=== PATIENT | female | born 1985 | race Two or more races ===

== ENCOUNTER 2018-10-15 16:28 | Emergency (ER) | payer OTHER ==
[~2018-10-15] VITALS: Ht 160 cm; Wt 73.0 kg
[~2018-10-15 16:28] MED LIST: INSU100C5 SQ-INSULIN; INSU100V13 SQ
--- NOTE | 2018-10-15 17:03 | NUR ---
PT IN [place]
[2018-10-15 17:33] LABS: BASOPHILS # (AUTO) 0.04 x10^3/uL (0-0.1); BASOPHILS % (AUTO) 0 % (0-1); EOSINOPHILS # (AUTO) 0.07 x10^3/uL (0-0.4); EOSINOPHILS % (AUTO) 1 % (1-7); LYMPHOCYTES # (AUTO) 2.58 x10^3/uL (1-3.4); LYMPHOCYTES % (AUTO) 21 % (22-44); MD NO; MEAN CORPUSCULAR HGB CONC 33.8 g/dL (32.4-35.8); MEAN CORPUSCULAR VOLUME 88.8 fL (80-100); MEAN PLATELET VOLUME 7.9 fL (7.4-10.4); MONOCYTES # (AUTO) 0.47 x10^3/uL (0.2-0.8); MONOCYTES % (AUTO) 4 % (2-9); NEUTROPHILS # (AUTO) 9.38 x10^3/uL (1.8-6.8); NEUTROPHILS % (AUTO) 75 % (42-75); PLATELET COUNT 381 x10^3/uL (130-400); RED BLOOD COUNT 4.33 x10^6/uL (3.82-5.3); RED CELL DISTRIBUTION WIDTH 13.2 % (9.6-15.2)
[2018-10-15 17:46] LABS: ALBUMIN 3.6 g/dL (3.4-5.0); ANION GAP 8 mmol/L (5-15); CALCIUM 9.4 mg/dL (8.5-10.1); CHLORIDE 106 mmol/L (98-107)
[2018-10-15 17:50] VITALS: BP 136/58
[2018-10-15 18:05] LABS: CREATININE 0.58 mg/dL (0.55-1.02)
--- NOTE | 2018-10-15 18:24 | NUR ---
RETURNED FROM BREAK; PER BREAK RN PT UP FOR RECHECK THEN DC. AWAITING MD
== END 2018-10-15 18:47 | disposition home or self-care (01) ==
LOC: ED 18:15
DX: O20.0 Threatened abortion (principal); Z3A.10 10 weeks gestation of pregnancy; E11.9 Type 2 diabetes mellitus without complications
CPT/HCPCS: 36415; 76801; 80048; 82040; 84702; 85025; 86901; 99284